=== PATIENT | male | born 1945 | race Caucasian/White ===

== ENCOUNTER 2025-08-24 14:05 | Emergency (ER) | payer OTHER, MEDICARE, SELFPAY ==
[2025-08-24 14:07] VITALS: BP 122/82
[2025-08-24 14:13] VITALS: BMI 37.2
--- NOTE | 2025-08-24 14:50 | ED.GENMED ---
History of Present Illness
General
Chief Complaint: Catheter/Tube Problem
Source: patient
Exam Limitations: none
Time Seen by Provider: 08/24/25 14:10
History of Present Illness
History of Present Illness:
The patient is a pleasant 79-year-old man with a past medical history of dementia who was brought to the ED after his daughter noticed that his suprapubic catheter was dislodged. Before my evaluation, Dr. Schwartz came to see the patient and tried to
replace it. He was unable to do so and patient now has a Castillo catheter. Patient denies all complaints to me. He denies pain. He denies nausea and vomiting.
Past History
Past History
ED Past Medical History: Other (Dementia)
ED Past Surgical History: Other
Social History
Tobacco: Other
Alcohol: None
Drug: None
Personal: Other
Living: with family
Employment: Other
Family History
Family History: Other
Review of Systems
Review of Systems
Allergies reviewed?: Yes
Unable to obtain full review of systems at this time due to: dementia
Other source history: family
All Other Systems: ROS reviewed and negative except as documented in HPI and ROS
Constitutional: Reports no symptoms
EENT: Reports no symptoms
Respiratory: Reports no symptoms
Cardiac: Reports no symptoms
ABD/GI: Reports no symptoms
: Reports other
Musculoskeletal: Reports no symptoms
Skin: Reports no symptoms
Neurological: Reports no symptoms
Endocrine: Reports no symptoms
Hematologic/Lymphatic: Reports no symptoms
Psychiatric: Reports no symptoms
Phy Exam
Physical Exam
Physical Exam:
Physical Exam
General: no apparent distress, not acutely ill, well and comfortable appearing
Neck: supple.
Heart: s1/s2 regular rate and rhythm, murmur present
Lungs: no acute respiratory distress. clear bilaterally
Abdomen: Suprapubic dressing
Neuro: Alert, nonfocal
Skin: no rash
Psychiatric: well kept. interactive and cooperative
Extremities: no edema. no calf tenderness. negative homans. good distal pulses
Course
Orders/Labs/Results
Orders:
Orders
08/24/25 15:39
CefTRIAXone [Rocephin] 1,000 mg IV NOW STA
Vital Signs
Initial and Last Documented VS:
Initial Vital Signs
Temp Pulse Resp BP Pulse Ox
98.1 F 79 14 122/82 97
08/24/25 14:07 08/24/25 14:07 08/24/25 14:07 08/24/25 14:07 08/24/25 14:07
Last Documented Vital Signs
Temp Pulse Resp BP Pulse Ox
98.1 F 79 14 122/82 97
08/24/25 14:07 08/24/25 14:07 08/24/25 14:07 08/24/25 14:07 08/24/25 14:51
MDM/Problems Addressed
Differential Diagnosis Includes:
Acutely dislodged suprapubic catheter, obstructed suprapubic catheter
MDM/Problems Addressed:
Patient arrives with acutely dislodged suprapubic catheter
*Pulse Oximetry
SaO2: 97
Oxygen Mode of Delivery: Room air
Patient hypoxic: no
*EKG
Interpreted by ED Provider?: NA
*Spinner Continuous Interpretation
Rate: Spinner Continuous- N/A
*Critical Care Note
Total Time (30-74mins, 75-104mins- exclusive of procedures): Not Applicable
Data Reviewed
Source: patient
Patient Management
Social determinants of health affecting care: Living situation and Strong social support
Discussion with other providers: Other (Discussed case with Dr. Schwartz who recommended that patient be given 1 dose of Rocephin due to instrumentation and to follow-up with Dr. Sampson. He also told me to have the patient hold off on taking Eliquis
until August 31)
ED Attending Note
-
Portions of this chart may have been created with voice recognition software.� Occasional wrong word or��sound alike� substitutions may have occurred due to the inherent limitations of voice recognition software.
Discharge Plan
Departure
Patient Disposition: Home (Routine Discharge)
Date of Disposition: 08/24/25
Time of Disposition: 15:45
Patient with high blood pressure during this ER visit?: No
Condition: Good
Discharge Problem:
Suprapubic catheter dysfunction
Instructions: How to Care for Your Castillo Catheter, Male
Referrals:
Gopal Meeks MD [Active, Urology]
Referral Note: Call Thursday to arrange follow-up
Activity Restrictions/Additional Instructions:
Please change suprapubic cath wound dressing once a day until it is dry. Please call Dr. Meeks's office for follow-up this Thursday. Please do not take any Eliquis until August 31.
Interventions
Interventions:
*General Assessment Last Done: 08/24/25 14:07
*Neglect/Abuse Screening Last Done: 08/24/25 14:07
*ED COVID-19 Vaccine History Last Done: 08/24/25 14:07
*ED Influenza Vaccine History Last Done: 08/24/25 14:07
[facility] Risk Assessment Tool Last Done: 08/24/25 14:13
*Risk Screen - Suicide (C-SSRS) Last Done: 08/24/25 14:07
QF-Gusxbl-Ljqyocqsol Assessment Last Done: 08/24/25 14:13
ED-Male Genitourinary Assessment Last Done: 08/24/25 14:13
Discharge Date and Time
Print Language: CROATIAN
--- NOTE | 2025-08-24 15:36 | CON.MD ---
Consultation - Medical
-
see dictated note
pt with long hx of voiding dysfunction
recently underwent interstim explant and sp tube placement
discharged- but reports since at home- tube not draining/sp pain/leakage from penis
on exam- sp tube clearly malpositioned
tried a variety of maneuvers to replace including bedside cysto via urethra and track
urethral molina replaced
to call dr chen for f/u
updated daughter by phone
Consultation
-
Date/Time Consultation Requested: 08/24/25 at 3pm
Date/Time Consultation Performed: 08/24/25 at 3pm
Requesting Provider: ER
Performing Provider: Dr arzate
Reason for Consultation: tube problem
--- NOTE | 2025-08-24 15:39 | W.IMMPOSTOP ---
Surgical Immed Post Op Note
-
Primary Surgeon:
huey
Assisting Surgeon:
Pre-op Diagnosis:
malpositioned sp tube
Post-op Diagnosis:
same
Procedure Performed:
cysto
Anesthesia Type:
local
Specimen / Cultures:
none
Estimated Blood Loss:
none
Complications:
none
Operative Findings:
bladder intact- no sp tube in bladder- unable to replace
[2025-08-24] MEDS: STERILE WATER FOR INJECTION 10 ML IV (16:23)
[2025-08-24] MEDS: ROCEPHIN 1000 MG IV (16:23)
== END 2025-08-24 18:04 | disposition home or self-care (01) ==
LOC: EMR 14:05
PROVIDERS: EMERGENCY PHYSICIAN Emergency Medicine; FAMILY PHYSICIAN Family Medicine
DX: T83.010A Breakdown (mechanical) of cystostomy catheter, initial encounter (principal); Y73.2 Prosthetic and other implants, materials and accessory gastroenterology and urology devices associated with adverse incidents; E11.9 Type 2 diabetes mellitus without complications; E78.5 Hyperlipidemia, unspecified; I10 Essential (primary) hypertension; F03.90 Unspecified dementia, unspecified severity, without behavioral disturbance, psychotic disturbance, mood disturbance, and anxiety; Z87.891 Personal history of nicotine dependence; Z88.5 Allergy status to narcotic agent; Z79.01 Long term (current) use of anticoagulants; Z79.899 Other long term (current) drug therapy; I48.91 Unspecified atrial fibrillation
CPT/HCPCS: 96374; 99284; 51702